=== PATIENT | female | born 1975 ===

== ENCOUNTER 2024-06-18 04:08 | Observation (INO) ==
[2024-06-18] MEDS ORDERED: IOPAMIDOL 100 ML BOTTLE IV ONE (04:09)
[2024-06-18] MEDS: ONDANSETRON 4 MG/2 ML VIAL IV ONE (04:15)
[2024-06-18] MEDS: 0.9 % SODIUM CHLORIDE 1,000 ML IV ONE (04:15)
[2024-06-18] MEDS: PANTOPRAZOLE 40 MG VIAL IV ONE (04:15)
[2024-06-18] MEDS: KETOROLAC 30 MG/ML VIAL IV ONE (04:15)
[2024-06-18 04:44] LABS: Basophils # (Auto) 0.02 K/mcL (0.00-0.30); Basophils % (Auto) 0.2 % (0.0-2.0); Eosinophils # (Auto) 0.21 K/mcL (0.00-0.70); Eosinophils % (Auto) 2.1 % (0.0-7.0); Hematocrit 48.3 % (34.1-44.9); Lymphocytes # (Auto) 2.48 K/mcL (1.50-4.80); Lymphocytes % (Auto) 24.7 % (15.5-49.0); Mean Cell Volume 99.4 fL (80.0-100.0); Mean Corpuscular HGB Conc 33.1 g/dL (31.0-36.0); Mean Platelet Volume 11.2 fL (8.8-12.5); Monocytes # (Auto) 0.99 K/mcL (0.10-0.90); Monocytes % (Auto) 9.8 % (1.0-12.0); Neutrophils % (Auto) 63.1 % (38.0-78.0); Platelet Count 234 K/mcL (140-440); RBC 4.86 M/mcL (3.59-5.38); Red Cell Distribution Width 14.2 % (11.5-14.5); WBC 10.1 K/mcL (4.5-11.0)
[2024-06-18 05:06] LABS: ALT/SGPT 12 U/L (<40); AST/SGOT 17 U/L (<32); Albumin 3.7 gm/dL (3.2-5.2); Albumin/Globulin Ratio 1.4 (1.0-2.3); Alkaline Phosphatase 66 U/L (39-117); Bilirubin,Total 0.6 mg/dL (0.1-1.0); Blood Urea Nitrogen 5 mg/dL (6-20); Calcium 9.1 mg/dL (8.6-10.4); Carbon Dioxide 25 mmol/L (22-30); Chloride 104 mmol/L (96-108); Globulin 2.6 gm/dL (2.2-3.7); Glomerular Filtration Rate 103; Glucose 109 mg/dL (70-105); Potassium 3.7 mmol/L (3.3-5.1); Sodium 141 mmol/L (133-145)
[2024-06-18] MEDS: LEVOFLOXACIN 750 MG/150 ML BAG IV ONE (09:15)
[2024-06-18] MEDS: HYDROmorphone 0.5 MG/0.5 ML SYRINGE IV PRN (10:35)
[2024-06-18] MEDS: DEXTROSE 5%-LR 1,000 ML IV SCH ×2 (12:44→23:53)
[2024-06-18] MEDS: ONDANSETRON 4 MG/2 ML VIAL IV PRN (13:48)
[2024-06-18] MEDS: METOCLOPRAMIDE 10 MG/2 ML VIAL IV PRN (20:29)
[2024-06-19 06:35] LABS: Hemoglobin 15.7 g/dL (11.2-15.7); Mean Cell Volume 101.7 fL (80.0-100.0); Mean Corpuscular HGB Conc 33.4 g/dL (31.0-36.0); Mean Platelet Volume 11.2 fL (8.8-12.5); Platelet Count 217 K/mcL (140-440); RBC 4.62 M/mcL (3.59-5.38)
[2024-06-19 06:49] LABS: ALT/SGPT 14 U/L (<40); AST/SGOT 22 U/L (<32); Albumin 3.7 gm/dL (3.2-5.2); Albumin/Globulin Ratio 1.6 (1.0-2.3); Alkaline Phosphatase 71 U/L (39-117); Bilirubin,Total 0.6 mg/dL (0.1-1.0); Blood Urea Nitrogen 4 mg/dL (6-20); Calcium 8.8 mg/dL (8.6-10.4); Carbon Dioxide 25 mmol/L (22-30); Chloride 106 mmol/L (96-108); Globulin 2.3 gm/dL (2.2-3.7); Glomerular Filtration Rate 103; Glucose 119 mg/dL (70-105); Potassium 3.6 mmol/L (3.3-5.1); Sodium 142 mmol/L (133-145)
[2024-06-19] MEDS ORDERED: SUCCINYLCHOLINE 200 MG/10 ML VIAL IV ONE (07:29)
[2024-06-19] MEDS ORDERED: DEXAMETHASONE 10 MG/ML VIAL ONE (07:29)
[2024-06-19] MEDS ORDERED: TRANEXAMIC ACID 1,000 MG/10 ML VIAL ONE (07:29)
[2024-06-19] MEDS ORDERED: ROCURONIUM 10 MG/ML ML IV ONE (07:29)
[2024-06-19] MEDS ORDERED: KETOROLAC 30 MG/ML VIAL ONE (07:29)
[2024-06-19] MEDS ORDERED: ePHEDrine 50 MG/ML AMPUL IV ONE (07:29)
[2024-06-19] MEDS ORDERED: LIDOCAINE 2% PF 5 ML VIAL ONE (07:29)
[2024-06-19] MEDS ORDERED: GLYCOPYRROLATE 0.2 MG/ML VIAL IV ONE (07:29)
[2024-06-19] MEDS ORDERED: ONDANSETRON 4 MG/2 ML VIAL ONE (07:29)
[2024-06-19] MEDS ORDERED: KETAMINE 50 MG/ML ML ONE (07:30)
[2024-06-19] MEDS ORDERED: MIDAZOLAM 2 MG/2 ML VIAL ONE (07:30)
[2024-06-19] MEDS ORDERED: PROPOFOL 200 MG/20 ML VIAL IV ONE (07:30)
[2024-06-19] MEDS: SCOPOLAMINE 1 PATCH PATCH TOPICAL ONE (07:53)
[2024-06-19] MEDS: LEVOFLOXACIN 750 MG/150 ML BAG IV SCH (08:30)
[2024-06-19] MEDS ORDERED: FAMOTIDINE/PF 20 MG/2 ML VIAL IV ONE (08:30)
[2024-06-19] MEDS ORDERED: HYDROmorphone 0.5 MG/0.5 ML SYRINGE IV PRN (08:56)
[2024-06-19] MEDS ORDERED: fentaNYL 100 MCG/2 ML VIAL IV PRN (08:56)
[2024-06-19] MEDS ORDERED: IPRATROPIUM/ALBUTEROL 3 ML AMPUL.NEB NEB PRN (08:56)
[2024-06-19] MEDS ORDERED: DROPERIDOL 5 MG/2 ML VIAL IV PRN (08:56)
[2024-06-19] MEDS ORDERED: HYDROmorphone 0.5 MG/0.5 ML SYRINGE ONE (09:56)
[2024-06-19] MEDS: BUPIVACAINE W/EPI 0.25% 50 ML VIAL IJ ONE (10:27)
[2024-06-19] MEDS ORDERED: SUGAMMADEX SODIUM 200 MG/2 ML VIAL IV ONE (10:38)
[2024-06-19] MEDS: DEXTROSE 5%-1/2NS 1,000 ML IV SCH (14:59)
[2024-06-19] MEDS: LACTATED RINGERS 1,000 ML IV SCH (19:37)
[2024-06-19] MEDS: HYDROcodone/APAP 5/325MG TABLET PO PRN (20:00)
[2024-06-20 06:01] LABS: Hematocrit 41.8 % (34.1-44.9); Hemoglobin 13.7 g/dL (11.2-15.7); Mean Corpuscular HGB Conc 32.8 g/dL (31.0-36.0); Mean Platelet Volume 10.8 fL (8.8-12.5); Platelet Count 195 K/mcL (140-440); RBC 4.06 M/mcL (3.59-5.38); Red Cell Distribution Width 14.1 % (11.5-14.5); WBC 12.5 K/mcL (4.5-11.0)
[2024-06-20 06:41] LABS: Blood Urea Nitrogen 5 mg/dL (6-20); Calcium 8.3 mg/dL (8.6-10.4); Carbon Dioxide 23 mmol/L (22-30); Chloride 106 mmol/L (96-108); Glomerular Filtration Rate 108; Glucose 95 mg/dL (70-105); Potassium 3.5 mmol/L (3.3-5.1); Sodium 141 mmol/L (133-145)
[2024-06-20] MEDS: oxyCODONE IR 5 MG TABLET PO PRN (08:50)
[2024-06-20] MEDS: ACETAMINOPHEN 650 MG/65 ML BAG IV PRN (08:51)
== END 2024-06-20 17:42 | disposition home or self-care (01) ==
LOC: MEDSUR 04:08 → ED 04:08 → MEDSUR 11:05
PROVIDERS: ADMIT Surgery Surgical Critical Care; ATTEND Surgery Surgical Critical Care